=== PATIENT | female | born 1970 | race Caucasian/White ===

== ENCOUNTER 2020-09-13 01:42 | Inpatient (IN) | payer SELFPAY ==
[2020-09-13] VITALS (19 sets, daily range): BP systolic 75–144; BP diastolic 54–86; PULSE 54–81; RESP 12–22; TEMP 35.9–36.9; O2SAT 93–100; BMI 26.0
--- NOTE | 2020-09-13 | SCC_ITS ---
1. Cystoscopy, right retrograde pyelogram (very small volume) 2. Right ureteral stent placement (7 Yi by 24 cm double-pigtail 19.9 seconds of fluoroscopic guidance, for a cumulative dose of 1.88 mGy, was provided to Dr. Linda by the radiology department. C-arm images of the abdomen were saved for the patient's permanent record. [facility]
--- NOTE | 2020-09-13 02:29 | PM.HP ---
Providers/Chief Complaint Admitting Physician: iA Jackson MD Chief Complaint: direct admit History of Present Illness Alejandra Shahid is a 49 year old female with history of hypertension asthma arthritis presented today with chief complaint of right flank pain. Patient stating that her pain started on Monday, initially she attributed her symptoms to her chronic back pain but her pain was getting worse, she saw PCP yesterday who started her on ciprofloxacin. Her symptoms got worse which she describing as worsening of fatigue, lethargy, subjective fevers and an episode of vomiting at home. She is denying dysuria. Her flank pain is radiating towards right groin as well. She was seen in the ER at [facility] where diagnostics revealed leukocytosis white count 17,000, she was afebrile, he was given 2 L of normal saline along ceftriaxone for pyelonephritis which was evident on CT abdomen pelvis. SHERICE with creatinine 1.5. Urinalysis remarkable for pyuria with positive leukocyte esterase. Chest x-ray unremarkable. She has been tested negative for COVID-19 twice in last 1 week. Status post 1/2 COVID-19 vaccine At the time my evaluation normal vitals afebrile complaining of right flank pain. Dr. Linda accepted the patient and requested hospitalist service to admit. Review of Systems Const: Reports: fever(s), chills, body aches and fatigue Eyes: Denies: change in vision ENMT: Denies: throat pain Card: Denies: chest pain Resp: Denies: dyspnea GI: Reports: abdominal pain, nausea and vomiting : Reports: flank pain Musc: Denies: neck pain Skin/Breast: Denies: rash Neuro: Denies: headache(s) Psych: Denies: anxiety Endo: Denies: polyuria Jet/Lymph: Denies: easy bruising All/Imm: Denies: urticaria Medications/Allergies Allergies Allergy/AdvReac Type Severity Reaction Status Date / Time meperidine [From Demerol] Allergy ALGY-Hives Verified 09/13/20 01:58 morphine Allergy ALGY-Hives Verified 09/13/20 01:58 prednisone Allergy ALGY-Swell Verified 09/13/20 01:58 Lip/Tongue/Throat PFSH Acute PFSH: Medical History (Updated 09/13/20 @ 02:51 by Ai Jackson MD) Arthritis Asthma Bronchitis HTN (hypertension) Nicotine dependence Surgical History (Updated 09/13/20 @ 02:51 by Ai Jackson MD) H/O hemorrhoidectomy History of cholecystectomy History of tonsillectomy Previous back surgery S/P skin biopsy Family History (Updated 09/13/20 @ 02:51 by Ai Jackson MD) Other No pertinent family history Social History (Updated 09/13/20 @ 02:52 by Ai Jackson MD) Smoking and tobacco status: current every day smoker cigarettes [ Other cigarette details: 1.5pack ] Alcohol intake: never Substance/Drug Use: never Household members: none Housing: House Vitals/I&O/Wt Last Vital Signs Temp 98.2 F 09/13/20 01:53 Pulse 81 09/13/20 01:53 Resp 16 09/13/20 01:53 BP 111/75 09/13/20 01:53 Pulse Ox 97 09/13/20 01:53 Weight last 48 hrs Weight 66.678 kg Physical Exam Narrative: EXAM NARRATIVE: Middle-age female In distress with right flank pain, appears stated age S1, S2 sinus rhythm Bilateral breath sounds without adventitious rhonchi or crackles EOMI, PERRLA GCS 15 Awake alert oriented times GCS 15 Abdomen soft no signs of peritonitis Does not look fluid overloaded or dehydrated No joint swelling No sinus cellulitis Left nasolabial fold rash with healing/granulation tissue A&P Assessment and plan (1) Nephrolithiasis: Status: Acute (2) Pyelonephritis: Status: Acute (3) SHERICE (acute kidney injury): Status: Acute (4) Hydronephrosis: Status: Acute Additional A&P Information Nephrolithiasis/hydronephrosis 4 x 3 mm renal pelvis stone with mild hydronephrosis, UA showing pyuria, pyelonephritis Start ceftriaxone, she received 2 L at the outside facility and a gram of ceftriaxone will give her next dose in the morning Dilaudid for analgesia with bowel regimen We will keep her n.p.o. for urological intervention in the morning Hold lisinopril N.p.o. We will keep her on maintenance fluid overnight, currently pressure 111/[address] Linda consulted, patient has been tested negative twice for Covid 19 antigen SHERICE secondary to obstructive uropathy anticipating provement after intervention currently on ceftriaxone and maintenance fluid, no active signs of sepsis Check inflammatory markers in the morning N.p.o. DVT prophylaxis SCDs Full code Attestations Medical Necessity Statement*: Anticipating stay in the hospital cross more than 2 midnights for management of obstructive uropathy/pyelonephritis Time Spent in Patient Care: 30mins Coding Level of Care Code Acute Branch Sales And Service Representative for g Fwd Diagnoses Nephrolithiasis N20.0 Pyelonephritis N12 SHERICE (acute kidney injury) N17.9 Hydronephrosis N13.30
[2020-09-13] MEDS: dextrose 5%-sod chloride 0.45% 1,000 ML 75 ML IV ×2 (03:00→11:00)
--- NOTE | 2020-09-13 03:10 | W.ED.GENADLT ---
HPI - General Adult General: Chief complaint: General Medical Stated complaint: direct admit Time Seen by Provider: 09/13/20 02:00 History of Present Illness: HPI narrative: 49-year-old female presents as a direct admit from an outside hospital for hydronephrosis with pyelonephritis. She presents to the ER for medical clearance for going to the floor. She has no Covid symptoms including no cough, no congestion, no fever. She tested negative for Covid at her doctor's office yesterday. PFSH ED PFSH: Medical History (Updated 09/13/20 @ 03:12 by Duc Phelan DO) Arthritis Asthma Bronchitis HTN (hypertension) Nicotine dependence Surgical History (Updated 09/13/20 @ 02:51 by Ai Jackson MD) H/O hemorrhoidectomy History of cholecystectomy History of tonsillectomy Previous back surgery S/P skin biopsy Family History (Updated 09/13/20 @ 02:51 by Ai Jackson MD) Other No pertinent family history Social History (Updated 09/13/20 @ 02:52 by Ai Jackson MD) Smoking and tobacco status: current every day smoker cigarettes [ Other cigarette details: 1.5pack ] Alcohol intake: never Substance/Drug Use: never Household members: none Housing: House Physical Exam Const: COMMON NORMALS: patient oriented x3 and alert Chest: COMMONS NORMALS: normal inspection of the chest Resp: COMMON NORMALS: normal respiratory effort, No use of accessory muscles and clear to auscultation bilaterally AUSCULTATION: clear to auscultation bilaterally Cardio: COMMON NORMALS: regular rate and regular rhythm RATE: regular rate RHYTHM: regular rhythm Neuro: COMMON NORMALS: patient oriented x3 SENSORIUM/ORIENTATION: Yes alert Course Vital Signs: Vital signs: Vital Signs Temperature 98.2 F 09/13/20 01:53 Pulse Rate 81 09/13/20 01:53 Respiratory Rate 16 09/13/20 01:53 Blood Pressure 111/75 09/13/20 01:53 Pulse Oximetry 97 09/13/20 01:53 Discharge Plan Discharge Patient Disposition: Admitted As Inpatient Admit Provider: Ai Jackson Clinical Impression: Pyelonephritis Hydronephrosis Qualifiers: Hydronephrosis type: with renal calculous obstruction Qualified Code(s): N13.2 - Hydronephrosis with renal and ureteral calculous obstruction Condition: Stable Coding Level of Care Code ED Athletic Coordinator for Chg Fwd Exam Expanded Problem Focused
[2020-09-13] MEDS: HYDROmorphone 1 mg/mL INJ 1 mL 0.5 MG IVP ×2 (03:19→08:29)
--- NOTE | 2020-09-13 05:14 | P.CONIM_ITS ---
Providers/Reason For Consult Consulting Physician/Specialty*: Urology/Linda Reason for Consult*: Right Obstructive Pyelonephritis Attending Physician: Ai Jackson MD History of Present Illness History of Present Illness Alejandra Shahid is a 49 year old female direct admitted from [facility] after evaluation for fever, lethargy, emesis, and RIGHT renal colicky pain revealed OBSTRUCTIVE PYELONEPHRITIS. She had been on outpatient oral Cipro and was worsening. CT Scan showed a 4mm RIGHT UPJ stone with hydro WBC was about 18k. Urine showed pyuria. Creatinine mildly elevated at 1.5. Normal liver functions. Started on ROCEPHIN and transferred to [facility] for further eval and treatment. No indications of Covid infection on preadmit screeing. Additional history: Prior urological concerns: Is not a frequent UTI patient. Her current symptoms began about 3 weeks ago with increasing urgency frequency and had significant progression of that over the last week. About the same time she developed increasing right flank pain and right upper quadrant pain. She was experiencing chills and subjective fever but did not take her temperature. She did not seek care until 2 days ago at which time she was placed on I believe ciprofloxacin. She does not report a history of chronic UTI symptoms but does vaguely talk about some lower abdominal discomfort for longer than the above timeframe mentioned. Additional medical concerns: HTN, Asthma and arthritis. Updated/current data: I personally reviewed the CT scan after importing from [facility]. The stone is actually in the right proximal ureter out of the kidney proper. I agree there is hydronephrosis. There is some mild increase in perirenal stranding. There is also at least one other stone in the left kidney which is nonobstructing. No other gross pathology identified. There is no formal report yet from [facility]. KUB this morning: The left renal stone is readily identifiable. There is a faint hint on one of the images of a calcification likely consistent with the stone seen on CT scan in the right proximal ureter. Morning lab: Creatinine has slightly increased to 1.6. White count has improved to 10.7. I have explained the above in great detail to the patient. Reviewed with her the findings of her labs as well as her radiology tests. I have recommended emergency stent placement, completion of antibiotic therapy for UTI, and dealing with the stone after resolution of UTI. Benefits risk potential complications alternatives reviewed in detail. Discussed the remote chance of antegrade access requirement (percutaneous nephrostomy) if access in a retrograde fashion is unobtainable. She is a heavy smoker and has been so for 42 years. Reviewed in detail with her the importance of smoking cessation. Reviewed mu ltiple avenues of treatment, lines of thinking, benefits, and long-term expectations for quitting versus continuing. She seems motivated but has not pulled the trigger in the past on being diligent about trying to quit. Plans: 1. To the operating room emergently for cystoscopy right ureteral stent placement 2. Continue IV antibiotics 3. Deal with the stone more definitively once her infection has cleared. Review of Systems Const: Reports: fever(s), chills, body aches and malaise Eyes: Denies: change in vision or blurry vision ENMT: Denies: throat pain or odynophagia Card: Denies: chest pain or palpitations Resp: Denies: dyspnea or wheezing GI: Reports: abdominal pain (Right flank, right upper and lower quadrants), nausea and vomiting; Denies: diarrhea : Reports: flank pain; Denies: hematuria Musc: Reports: back pain; Denies: joint redness or joint warmth Skin/Breast: Denies: rash or non-healing lesions Neuro: Denies: headache(s), confusion, behavioral changes or seizure-like activity Psych: Denies: anxiety or depression Endo: Denies: flushing Jet/Lymph: Denies: easy bruising or easy bleeding All/Imm: Denies: urticaria or acute wheezing Meds/Allergies Home Medications and Allergies Allergies Allergy/AdvReac Type Severity Reaction Status Date / Time meperidine [From Demerol] Allergy ALGY-Hives Verified 09/13/20 01:58 morphine Allergy ALGY-Hives Verified 09/13/20 01:58 prednisone Allergy ALGY-Swell Verified 09/13/20 01:58 Lip/Tongue/Throat Current Medications Current Medications Generic Name Dose Route Start Last Admin Trade Name Freq PRN Reason Stop Dose Admin Hydromorphone HCl 0.5 mg 09/13/20 02:56 09/13/20 03:19 Hydromorphone 1 Mg/Ml Inj 1 Ml IVP 0.5 mg Q4H PRN Administration pain Dextrose/Sodium Chloride 1,000 mls @ 75 mls/hr 09/13/20 02:56 09/13/20 03:00 Dextrose 5%-Sod Chloride 0.45% IV 75 mls/hr .[id number] FLASH Administration PFSH Acute PFSH: Medical History Arthritis Asthma Bronchitis HTN (hypertension) Nicotine dependence Obstructive pyelonephritis Surgical History H/O hemorrhoidectomy History of cholecystectomy History of tonsillectomy Previous back surgery S/P skin biopsy Family History Other No pertinent family history Social History Smoking and tobacco status: current every day smoker cigarettes [ Other cigarette details: 1.5pack ] Alcohol intake: never Substance/Drug Use: never Household members: none Housing: House Vitals/I&O/Wt Last Vital Signs Temp 97.8 F 09/13/20 03:31 Pulse 71 09/13/20 03:31 Resp 19 H 09/13/20 03:31 BP 117/82 09/13/20 03:31 Pulse Ox 98 09/13/20 03:31 Weight last 48 hrs Weight 147 lb Physical Exam Const: COMMON NORMALS: no acute distress, alert and well nourished GENERAL APPEARANCE: well kempt and well developed ORIENTATION/CONSCIOUSNESS: not confused HENMT: COMMON NORMALS: normocephalic and atraumatic HEAD & SCALP: normocephalic and atraumatic Eye: COMMON NORMALS: conjunctivae normal and no scleral icterus CONJUNCTIVA: Yes conjunctivae normal Neck/C-Spine: COMMON NORMALS: full ROM GENERAL: Yes normal visual inspection Lymph: LYMPHATIC: no lymphadenopathy noted and no lymphedema noted Resp: COMMON NORMALS: normal respiratory effort and clear to auscultation bilaterally EFFORT & INSPECTION: No labored and No Actively coughing AUSCULTATION: clear to auscultation bilaterally Cardio: COMMON NORMALS: regular rate and regular rhythm RATE: regular rate RHYTHM: regular rhythm BRUITS: no carotid bruits GI: COMMON NORMALS: Soft to palpation PALPATION: Yes Soft to palpation, Yes Tenderness to palpation present (GI) Details: RLQ and RUQ and Yes Guarding due to palpation present (GI) : COMMON NORMALS: Yes normal external appearance and Yes normal appearance of the vagina BLADDER/KIDNEY EXAM: Yes bladder normal to palpation and Yes CVA tenderness BIMANUAL EXAM - VAGINA & UTERUS: Yes bladder normal to palpation Back/Pelvis: GENERAL BACK: Yes CVA tenderness CVA tenderness: right Extremity: COMMON NORMALS: no clubbing, cyanosis or edema Neuro: COMMON NORMALS: no focal motor deficits SENSORIUM/ORIENTATION: Yes alert Psych: COMMON NORMALS: mental status grossly normal APPEARANCE: Yes grossly normal and Yes well kempt ATTITUDE: Yes calm and Yes engaged Skin: COMMON NORMALS: no rashes or lesions noted GENERAL SKIN EXAM: no rashes or lesions noted Data Other Data: Attestation for Other Data: I personally reviewed and interpreted the following: (CT scan, KUB. See interpretation above.) A&P Assessment and plan (1) Obstructive pyelonephritis: Emergent right ureteral stent placement. Status: Acute (2) Nephrolithiasis: Additional nonobstructing LEFT renal calculus Status: Acute (3) SHERICE (acute kidney injury): Creatinine this morning of 1.6 Status: Acute Consult Attestations Medical Necessity Statement: Obstructive pyelonephritis worsening on antibiotics as outpatient Requiring surgical intervention with a right ureteral stent. Coding Level of Care Code Acute Banner Painter for [facility] Diagnoses Obstructive pyelonephritis N11.1 Nephrolithiasis N20.0 SHERICE (acute kidney injury) N17.9
--- NOTE | 2020-09-13 05:15 | XRR_ITS ---
PROCEDURE INFORMATION: Exam: XR Abdomen Exam date and time: 09/13/2020 5:15 AM Age: 49 years old Clinical indication: Abdominal pain; Flank; Right; Additional info: Right upj stone with UTI TECHNIQUE: Imaging protocol: XR of the abdomen. Views: Frontal supine view of the abdomen. 1 View. COMPARISON: CR Chest 2 views* [id number] 03/04/2017 10:02 PM FINDINGS: Gastrointestinal tract: Normal. No bowel dilation. Organs: Clips are present from cholecystectomy. A 4 mm calcification projects on the left kidney. No ureteral stones are seen. Bones/joints: Patient has undergone lumbar surgical fusion at L4-L5. XR/XR KUB [id number] IMPRESSION: 1. 4 mm calcification projects on the left kidney. 2. No acute abnormalities are seen.
[2020-09-13 05:26] LABS: Basophils # 0.1 10^3/uL (0.0-0.1); Basophils % 0.5 %; Eosinophils # 0.2 10^3/uL (0.0-0.8); Eosinophils % 1.6 %; Hematocrit 40.2 % (37.0-47.0); Hemoglobin 12.7 g/dL (11.5-15.3); Lymphocytes # 2.9 10^3/uL (0.8-4.8); Lymphocytes % 27.6 %; Mean Corpuscular HGB Conc 31.6 g/dL (30.0-36.0); Mean Corpuscular Hemoglobin 29.9 pg (28.0-34.0); Mean Corpuscular Volume 94.6 fL (81-99); Mean Platelet Volume 9.8 fL (7.4-10.4); Monocytes % 9.4 %; Neutrophils # 6.46 10^3/uL (1.8-7.7); Neutrophils % 60.5 %; Nucleated Red Blood Cells % 0 %; Platelet Count 325 10^3/cmm (130-400); Red Blood Count 4.25 10^6/uL (4.1-5.3); Red Cell Distribution Width 13.2 % (12.1-15.1); White Blood Count 10.7 10^3/uL (4.0-10.0)
[2020-09-13] MEDS: acetaminophen 500 mg Tablet PO ×2 (05:29→22:45)
[2020-09-13 05:53] LABS: Anion Gap 10.5 (5-19); Blood Urea Nitrogen 18 mg/dL (6-20); Calcium 9.3 mg/dL (8.5-10.5); Carbon Dioxide 23 mmol/L (22-29); Chloride 110 mmol/L (98-107); Glucose 90 mg/dL (65-115); Osmolality Calculated 291 mOsm/kg (285-295); Potassium 3.5 mmol/L (3.5-5.1); Sodium 140 mmol/L (136-145)
--- NOTE | 2020-09-13 08:19 | P.ANESASSM_ITS ---
Pre-Anesthetic Assessment Pre-Anesthetic Assessment: Height/Weight: Height 1.6 m Weight 66.678 kg Temp Pulse Resp BP Pulse Ox 98.0 F 68 17 116/78 97 09/13/20 07:52 09/13/20 07:52 09/13/20 07:52 09/13/20 07:52 09/13/20 07:52 Was Beta Jagdeep taken within 24 hours: N/A Was Clonidine taken within 24 hours: N/A Social: Social History: Tobacco and No alcohol Exam: Pre-Anes Outpt Exam: alert, oriented x 3, clear to auscultation bilaterally and regular rate & rhythm Airway: Submandibular: WNL Cervical ROM: WNL MP: 2 Pulmonary: Pulmonary: COPD CV/HEM: CV/HEM: HTN : Comments: History of renal calculi with ureteral obstruction/hydronephrosis Hepatic: Hepatic: None reported GI: GI: None reported Metabolic: Metabolic: None reported Musc/skel: Musc/skel: None reported Neuropsych: Neuropsych: None reported Anesthetic Plan: ASA status: 3E Anesthesia: General Meds/Allergies Current Medications: Current Medications Generic Name Dose Route Start Last Admin Trade Name Freq PRN Reason Stop Dose Admin Acetaminophen 500 mg 09/13/20 02:56 09/13/20 05:29 Acetaminophen 50 0 Mg Tablet PO 500 mg Q4H PRN Administration fever Hydromorphone HCl 0.5 mg 09/13/20 02:56 09/13/20 03:19 Hydromorphone 1 Mg/Ml Inj 1 Ml IVP 0.5 mg Q4H PRN Administration pain Dextrose/Sodium Ch loride 1,000 mls @ 75 ml s/hr 09/13/20 02:56 09/13/20 03:00 Dextrose 5%-Sod Chloride 0.45% IV 75 mls/hr .[id number] FLASH Administration PFSH Anesthesia PFSH: Medical History Arthritis Asthma Bronchitis HTN (hypertension) Nicotine dependence Obstructive pyelonephritis Surgical History H/O hemorrhoidectomy History of cholecystectomy History of tonsillectomy Previous back surgery S/P skin biopsy Family History Other No pertinent family history Social History Smoking and tobacco status: current every day smoker cigarettes [ Other cigarette details: 1.5pack ] Alcohol intake: never Substance/Drug Use: never Household members: none Housing: House Data Anesthesia CBC & Chem 7: 09/13/20 04:50 09/13/20 04:50 Other Labs: Laboratory Results - last 48 hr 09/13/20 09/13/20 04:50 04:50 WBC 10.7 H RBC 4.25 Hgb 12.7 Hct 40.2 MCV 94.6 MCH 29.9 MCHC 31.6 RDW 13.2 Plt Count 325 MPV 9.8 Neut % (Auto) 60.5 Lymph % (Auto) 27.6 [place] % (Auto) 9.4 Eos % (Auto) 1.6 Baso % (Auto) 0.5 Neut # (Auto) 6.46 Lymph # (Auto) 2.9 [place] # (Auto) 1.0 H Eos # (Auto) 0.2 Baso # (Auto) 0.1 Nucleated RBC % (auto) 0 Nucleated RBCs # 0.0 Sodium 140 Potassium 3.5 Chloride 110 H Carbon Dioxide 23 Anion Gap 10.5 BUN 18 Creatinine 1.6 H GFR Calculation 34.0 L Glucose 90 Calculated Osmolality 291 Calcium 9.3 Cardiac Studies: No Data to Display
[2020-09-13] MEDS: cefTRIAXone 1,000 MG in sodium chloride 0.9% (plus) 50 ML 100 MG IV (08:32)
--- NOTE | 2020-09-13 08:58 | SC_ITS ---
WS: [id number] C-ARM RADIOGRAPHS ABDOMEN; 2 IMAGES HISTORY: intra-op COMPARISON: 09/12/2020 Intraoperative imaging during RIGHT retrograde examination. There is contrast filling the RIGHT renal pelvis. Possible filling defect in the calyx of the upper pole RIGHT kidney. SC/C-arm FL for Urology IMPRESSION: Intraoperative imaging during retrograde evaluation of the RIGHT ureter and kid stoney.
[2020-09-13] MEDS: iohexol 300 mg/mL 50 mL Btl (OR ONLY) XX (09:22)
--- NOTE | 2020-09-13 09:23 | PM.OP ---
Operative Report Date of procedure: September 13, 2020 Pre-op Diagnosis: Right obstructive pyelonephritis Post-op diagnosis: same Post-op Diagnosis: Right obstructive pyelonephritis CHRONIC CYSTITIS CYSTICA Procedure Done: 1. Cystoscopy, right retrograde pyelogram (very small volume) 2. Right ureteral stent placement (7 [place] by 24 cm double-pigtail Pathology: none sent Surgeon: Maddi Anesthesia: General Estimated blood loss: Minimal Urine output: Not measured Complications: None. Hemodynamically stable throughout the case Findings: 7 [place] African by 24 cm stent placed without difficulty. Small amount of contrast was injected into the collecting system via an open-ended ureteral catheter to confirm appropriate position. Condition: stable Disposition: PACU Brief History: Alejandra is a very pleasant 49-year-old white female who I evaluated for the first time today at the request of the [place] emergency for direct admission related to infection and a right proximal ureteral stone with obstruction. White count was elevated. She had had about a week long history of increasing flank pain and subjective fever and chills. Urinalysis still showed pyuria after initiation of antibiotics and her symptoms had not improved. KUB confirmed the stone in roughly the same position without significant progression. She was recommended to go to the operating room emergently for right ureteral stent placement. Procedure: After emergent preoperative evaluation examination and obtaining of informed consent she was taken to the operative suite on 09/13/2020 where general anesthesia was administered without difficulty after appropriate timeout was performed, SCDs confirmed to be functioning, preoperative antibiotics administered, beta-ruth ann protocol confirmed. Prepped and draped in usual sterile fashion in dorsolithotomy position paying careful attention to avoiding pressure points. 21 [place] African cystoscope with 30 degree lens was introduced into the urethral meatus and advanced into the bladder under videoscopy. The bladder was systematically examined and showed evidence of chronic cystitis cystica. A flexible tip guidewire was then advanced at the right ureter curling in the area of the the kidney presumably. An open-ended ureteral catheter was then passed over the guidewire into this area and the wire removed in about 1 cc of contrast was instilled after draining off some urine. This allowed obvious visualization of the collecting system. The guidewire was then repassed back up and the catheter was removed. A 7 [place] African by 24 cm double-pigtail stent was advanced over the guidewire through the cystoscope into appropriate position as confirmed via fluoroscopy and cystoscopy. The stent was visualized to be draining. The bladder was drained and the procedure completed. Tolerated procedure well without complications and was awakened in the operating room and returned to the recovery room in stable condition. Intraoperatively her blood pressure was normal. PLANS: 1. Keep on inpatient status with IV antibiotics. Supportive care as needed. 2. After complete course of acute antibiotics for obstructive pyelonephritis we will treat the stone definitively. 3. Based on the findings of CHRONIC CYSTITIS CYSTICA she will require prolonged course of antibiotics for clearance.
--- NOTE | 2020-09-13 09:38 | SUR.PHASEI ---
pt awake alert takataive, BP lower see anesth med given on admit to pacu IV W/O rate, pt requests her mask be placed , pt denies pain and nauseas, bp better, vss monitor SR.
--- NOTE | 2020-09-13 09:47 | ANE.PACU2 ---
Inpatient post-anesthesia follow up: Airway intact: Yes Vital signs: Temperature 98.4 F Pulse Rate [Monito r] 81 Pulse Rate 59 Respiratory Rate 18 Blood Pressure [Le ft Arm] 111/75 Blood Pressure 116/72 Pulse Oximetry 98 Oxygen Delivery Me thod Room Air Oxygen Flow Rate 8 Fraction of Inspir ed Oxygen Hydration adequate: Yes Nausea and vomiting: No Pain level: 3 Mental status: Baseline
[2020-09-13] MEDS: phenazopyridine 100 mg Tablet 200 MG PO (10:56)
[2020-09-13] MEDS: sennosides-docusate Tablet 1 TAB PO (10:58)
--- NOTE | 2020-09-13 12:03 | P.PN_ITS ---
Subjective Subjective: Interval history: Admitted last night. Post right ureteral stenting, cystoscopy and right retrograde pyelogram. Complaining of pain in the flank and urinary urgency today. Denies any nausea, vomiting, headache, dizziness. Has remained afebrile hemodynamically stable. Medications: Reviewed: Yes Vitals/I&O/Wt Last Vital Signs Temp 97.9 F 09/13/20 11:00 Pulse 65 09/13/20 11:00 Resp 17 09/13/20 11:00 BP 120/84 09/13/20 11:00 Pulse Ox 96 09/13/20 11:00 09/12/20 09/13/20 09/13/20 22:59 06:59 14:59 Intake Total 650 / 650 Output Total 300 / 300 0 / 0 Balance -300 / -300 650 / 650 Weight last 48 hrs Weight 66.678 kg Physical Exam Narrative: EXAM NARRATIVE: Middle-age female In distress with right flank pain, appears stated age S1, S2 sinus rhythm Bilateral breath sounds without adventitious rhonchi or crackles EOMI, PERRLA GCS 15 Awake alert oriented times GCS 15 Abdomen soft no signs of peritonitis Does not look fluid overloaded or dehydrated No joint swelling No sinus cellulitis Left nasolabial fold rash with healing/granulation tissue Data : 09/13/20 04:50 09/13/20 04:50 A&P Assessment and plan (1) Nephrolithiasis: Status: Acute (2) Pyelonephritis: Status: Acute (3) SHERICE (acute kidney injury): Status: Acute (4) Hydronephrosis: Status: Acute Qualifiers: Hydronephrosis type: with renal calculous obstruction Qualified Code(s): N13.2 - Hydronephrosis with renal and ureteral calculous obstruction Additional A&P Information Sepsis secondary to pyelonephritis: Nephrolithiasis/hydronephrosis: Post right ureteral stent stenting: Postoperative day 1. Continue with ceftriaxone. Check urinalysis, urine culture, blood culture. Patient found to have chronic cystitis cystica during the procedure so would need prolonged antibiotic course for clearance. Start patient on Axtell 5 every 6 hour, tramadol 50 every 6 hours for pain management. Normal saline at 75 cc/h. Acute kidney injury: Most likely secondary to sepsis. Continue with IV fluids as above. Medical reconstruction done for nephrotoxic drugs. Hypertension: Goal blood pressure less than 140/90 mmHg. Continue with amlodipine. For now hold off on lisinopril. Cardiac diet DVT prophylaxis SCDs Full code Attestations Medical Necessity Statement*: Requires further hospitalization for management of sepsis secondary pyonephritis, acute kidney injury Time Spent in Patient Care: Greater than 35 minutes (>than 50% of time spent in counselling and/or direct pt care on unit) . 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
[2020-09-13 12:38] LABS: Procalcitonin 0.13 ng/mL (0-0.5); Thyroid Stimulating Hormone 3.01 uIU/mL (0.27-4.20)
[2020-09-13] MEDS: HYDROcodone-acetaminophen 5-325 mg Tablet 1 TAB PO ×2 (12:41→19:50)
[2020-09-13 12:49] LABS: Iron 22 ug/dL (37-145); Percent Saturation 14.9 % (20-50); Total Iron Binding Capacity 147 mcg/dl; Unsaturated Iron Binding 125 ug/dL (112-347)
[2020-09-13 15:49] LABS: Bilirubin Urine Neg (Negative); Blood Urine 2+ (Negative); Glucose Urine UA Norm (Normal); Ketones Urine Negative (Negative); Nitrate Urine Negative (Negative); Protein Urine Neg (Negative); Specific Gravity, Urine 1.005 (1.005-1.030); Urine Appearance Clear (CLEAR); Urine Color Yellow (Yellow); Urobilinogen Urine Norm (Negative); pH Urine 6.5 (5-7)
[2020-09-13 15:50] LABS: Add Urine Microscopic? YES; Leukocyte Esterase Urine Trace (Negative); RBC Urine 0-4 /hpf (0-2); WBC Urine 0-4 /hpf (0-5)
[2020-09-13 15:51] LABS: Add Urine Culture? No; Bacteria Urine TRACE /hpf
[2020-09-13] MEDS: TRAMadol 50 mg Tablet PO (16:44)
[2020-09-14] VITALS: BP 107/72; PULSE 68; RESP 16; TEMP 36.7; O2SAT 95
[2020-09-14] MEDS: dextrose 5%-sod chloride 0.45% 1,000 ML 75 ML IV (01:35)
[2020-09-14] MEDS: ondansetron 2 mg/ML SDV 2 mL 4 MG IVP (01:36)
[2020-09-14 04:00] VITALS: BP 136/77; PULSE 65; RESP 18; TEMP 36.7; O2SAT 96
[2020-09-14] MEDS: HYDROcodone-acetaminophen 5-325 mg Tablet 1 TAB PO ×2 (04:00→10:19)
[2020-09-14 07:01] LABS: Basophils % 0.3 %; Eosinophils # 0.1 10^3/uL (0.0-0.8); Eosinophils % 0.6 %; Hematocrit 37.9 % (37.0-47.0); Hemoglobin 11.8 g/dL (11.5-15.3); Lymphocytes # 3.2 10^3/uL (0.8-4.8); Lymphocytes % 27.4 %; Mean Corpuscular HGB Conc 31.1 g/dL (30.0-36.0); Mean Corpuscular Hemoglobin 29.4 pg (28.0-34.0); Mean Corpuscular Volume 94.5 fL (81-99); Mean Platelet Volume 10.3 fL (7.4-10.4); Monocytes # 0.9 10^3/uL (0.2-0.9); Monocytes % 7.4 %; Neutrophils # 7.38 10^3/uL (1.8-7.7); Neutrophils % 63.9 %; Nucleated Red Blood Cells % 0 %; Platelet Count 331 10^3/cmm (130-400); Red Blood Count 4.01 10^6/uL (4.1-5.3); Red Cell Distribution Width 13.2 % (12.1-15.1); White Blood Count 11.6 10^3/uL (4.0-10.0)
[2020-09-14 07:21] LABS: Alanine Aminotransferase 14 U/L (0-33); Alkaline Phosphatase 104 IU/L (35-105); Anion Gap 13.8 (5-19); Aspartate Amino Transferase 17 U/L (0-32); Blood Urea Nitrogen 14 mg/dL (6-20); Calcium 9.2 mg/dL (8.5-10.5); Carbon Dioxide 22 mmol/L (22-29); Chloride 111 mmol/L (98-107); Chol HDL Ratio 4.93 mg/dL (0.0-4.40); Cholesterol 143 mg/dL (0-200); Globulin 2.7 g/dL (1.3-4.6); Glomerular Filtration Rate 52.4 mL/min (90-130); Glucose 97 mg/dL (65-115); HDL Cholesterol 29 mg/dL (60-100); LDL Cholesterol Calculated 93 mg/dL (50-129); Osmolality Calculated 296 mOsm/kg (285-295); Potassium 3.8 mmol/L (3.5-5.1); Sodium 143 mmol/L (136-145); Total Bilirubin 0.2 mg/dL (0.15-1.2); Total Protein 5.7 g/dL (6.6-8.7); Triglycerides 104 mg/dL (0-150); VLDL Cholestrol Calculation 21 mg/dL (0-30)
[2020-09-14 07:36] LABS: Estmated Average Glucose 91; Hemoglobin A1C 4.8 % (4.0-6.0)
[2020-09-14 08:00] VITALS: BP 132/77; PULSE 66; RESP 18; TEMP 36.4; O2SAT 98
[2020-09-14] MEDS: cefTRIAXone 1,000 MG in sodium chloride 0.9% (plus) 50 ML 100 MG IV (08:05)
[2020-09-14] MEDS: sennosides-docusate Tablet 1 TAB PO (08:06)
[2020-09-14] MEDS: acetaminophen 500 mg Tablet PO (08:16)
--- NOTE | 2020-09-14 09:24 | P.DS_ITS ---
Discharge Providers Date of Admission: 09/13/20 02:27 Date of Discharge: September 14, 2020 Attending Provider at Admission: Ai Jackson MD Attending Provider at Discharge: Lele Chaudhary MD Diagnoses at Discharge Discharge Diagnosis (1) Pyelonephritis: Status: Acute Permanent problem details: Obstructive pyelonephritis with excellent response to the stent drainage and antibiotic therapy. Final cultures are pending but preliminary shows no growth. She was on ciprofloxacin at time of presentation (2) Nephrolithiasis: Status: Acute Permanent problem details: Right proximal ureteral stone treated with stent, untreated LEFT renal calculi (3) SHERICE (acute kidney injury): Status: Acute Permanent problem details: Improved after stent placement Hospital Course Hospital Course She was admitted and taken to the operating room urgently for a right ureteral stent placement for obstructive pyelonephritis secondary to 4 mm right proximal ureteral stone. Her white count decreased appropriately. She had no fever spikes. Her vital signs remained stable without any evidence of progression to sepsis. Symptoms dramatically improved. She was having typical stent symptoms of discharge on postoperative day #1 but overall clinically looks much better. She was also noted to have CHRONIC CYSTITIS at time of cystoscopy including cystitis cystica. For that reason she will need to be on antibiotics longer. A follow-up was scheduled on 09/18/2020. She will be discharged on CEFUROXIME 500 mg twice a day. She has been instructed to call if she has progressive symptoms after discharge. Physical Exam Const: COMMON NORMALS: no acute distress, alert and well nourished GENERAL APPEARANCE: well kempt and well developed ORIENTATION/CONSCIOUSNESS: not confused HENMT: COMMON NORMALS: normocephalic and atraumatic HEAD & SCALP: normocephalic and atraumatic Eye: COMMON NORMALS: conjunctivae normal and no scleral icterus CONJUNCTIVA: Yes conjunctivae normal Neck/C-Spine: COMMON NORMALS: full ROM GENERAL: Yes normal visual inspection Resp: EFFORT & INSPECTION: No labored and No Actively coughing Extremity: COMMON NORMALS: no clubbing, cyanosis or edema Neuro: SENSORIUM/ORIENTATION: Yes alert Psych: COMMON NORMALS: mental status grossly normal APPEARANCE: Yes grossly normal and Yes well kempt ATTITUDE: Yes calm and Yes engaged Skin: COMMON NORMALS: no rashes or lesions noted and no jaundice GENERAL SKIN EXAM: no rashes or lesions noted Discharge Data Data Completed and Pending: Completed Studies During Hospitalization Category Date Time Status XR KUB [id number] Rout ine Exams 09/13/20 05:15 Completed Pending at discharge Category Date Time Status C-arm FL for Urol ogy Routine Exams 09/13/20 08:58 Taken Blood Culture Sta t Lab 09/13/20 14:45 Results MRSA by PCR Routi ne Lab 09/13/20 17:53 Received Urine Culture Sta t Lab 09/13/20 11:55 Results Labs from last 24 hours 09/14/20 09/14/20 09/14/20 05:50 05:50 05:50 WBC 11.6 H RBC 4.01 L Hgb 11.8 Hct 37.9 MCV 94.5 MCH 29.4 MCHC 31.1 RDW 13.2 Plt Count 331 MPV 10.3 Neut % (Auto) 63.9 Lymph % (Auto) 27.4 Gallia % (Auto) 7.4 Eos % (Auto) 0.6 Baso % (Auto) 0.3 Neut # (Auto) 7.38 Lymph # (Auto) 3.2 Gallia # (Auto) 0.9 Eos # (Auto) 0.1 Baso # (Auto) 0.0 Nucleated RBC % (a uto) 0 Nucleated RBCs # 0.0 Sodium 143 Potassium 3.8 Chloride 111 H Carbon Dioxide 22 Anion Gap 13.8 BUN 14 Creatinine 1.1 H GFR Calculation 52.4 L Glucose 97 Estimat Average Gl ucose 91 Hemoglobin A1c 4.8 Calculated Osmolal ity 296 H Calcium 9.2 Iron TIBC % Saturation Unsat Iron Binding Total Bilirubin 0.2 AST 17 ALT 14 Alkaline Phosphata se 104 Total Protein 5.7 L Albumin 3.0 L Globulin 2.7 Triglycerides 104 Cholesterol 143 LDL Cholesterol, C alc 93 Total VLDL Cholest nadira 21 HDL Cholesterol 29 L Cholesterol/HDL Ra austen 4.93 H Procalcitonin TSH Urine Color Urine Appearance Urine pH Ur Specific Gravit y Urine Protein Urine Glucose (UA) Urine Ketones Urine Blood Urine Nitrate Urine Bilirubin Urine Urobilinogen Ur Leukocyte Cecilia ase Urine RBC Urine WBC Ur Squamous Epith Cells Amorphous Sediment Urine Bacteria 09/13/20 09/13/20 11:55 04:00 WBC RBC Hgb Hct MCV MCH MCHC RDW Plt Count MPV Neut % (Auto) Lymph % (Auto) Gallia % (Auto) Eos % (Auto) Baso % (Auto) Neut # (Auto) Lymph # (Auto) Gallia # (Auto) Eos # (Auto) Baso # (Auto) Nucleated RBC % (a uto) Nucleated RBCs # Sodium Potassium Chloride Carbon Dioxide Anion Gap BUN Creatinine GFR Calculation Glucose Estimat Average Gl ucose Hemoglobin A1c Calculated Osmolal ity Calcium Iron 22 L TIBC 147 % Saturation 14.9 L Unsat Iron Binding 125 Total Bilirubin AST ALT Alkaline Phosphata se Total Protein Albumin Globulin Triglycerides Cholesterol LDL Cholesterol, C alc Total VLDL Cholest nadira HDL Cholesterol Cholesterol/HDL Ra austen Procalcitonin 0.13 TSH 3.01 Urine Color Yellow Urine Appearance Clear Urine pH 6.5 Ur Specific Gravit y 1.005 Urine Protein Neg Urine Glucose (UA) Norm Urine Ketones Negative Urine Blood 2+ H Urine Nitrate Negative Urine Bilirubin Neg Urine Urobilinogen Norm Ur Leukocyte Cecilia ase Trace H Urine RBC 0-4 H Urine WBC 0-4 H Ur Squamous Epith Cells 5-10 H Amorphous Sediment Not Reportable Urine Bacteria Trace Vitals: Last Vital Signs Temp 97.6 F 09/14/20 08:00 Pulse 66 09/14/20 08:00 Resp 18 09/14/20 08:00 BP 132/77 09/14/20 08:00 Pulse Ox 98 09/14/20 08:00 Discharge Plan Discharge Patient Disposition: Home Prescriptions: New cefuroxime axetil 500 mg tablet 500 mg PO BID 20 Days Qty: 40 RF: 0 hydrocodone-acetaminophen 5-325 mg tablet 1 tab PO Q8H PRN (Reason: pain) Qty: 12 RF: 0 Continued cyclobenzaprine 10 mg tablet 10 mg PO BEDTIME PRN (Reason: MUSCLE SPASMS) RF: 0 promethazine 12.5 mg tablet 12.5 mg PO Q6H PRN (Reason: NAUSEA/VOMITING) RF: 0 lisinopril 20 mg tablet 20 mg PO DAILY RF: 0 amlodipine 5 mg tablet 5 mg PO DAILY RF: 0 ciprofloxacin HCl 500 mg tablet 500 mg PO BID RF: 0 Held ibuprofen 800 mg tablet 800 mg PO Q8H PRN (Reason: Pain) RF: 0 Hold Instructions: Resume on 09/25/20. Hold after 09/16/2020 Discharge Orders: Discharge Order (Routine); Ordered 09/14/20 Ordered By: Yasmany Linda Other Ambulatory Orders: XR ARACELIB [id number] (Routine) Timeframe: 20200918 Facility: [facility] - Location: [address] Imaging Ordered By: Yasmany Linda Referrals: Yasmany Linda MD [Physician] - 09/18/20 (Please call [facility] on Monday to confirm your appointment on 09/18/20 for KUB first.) Discharge Diet: Usual diet Discharge Activity: Increase activity as tolerated Patient Instructions: Cefuroxime (By mouth), Acute Pyelonephritis (DC), Ureteral Stent Placement (DC), Opioid Safety Activity Restrictions/Additional Instructions: 1. You were treated at the hospital for obstructive pyelonephritis. This involved antibiotics as well as a right ureteral stent placement. The stone was not removed but rather bypassed with the stent in order to allow the antibiotics to work better. 2. The stent still needs to be removed as does the stone. 3. Your first follow-up visit in my office will be on Monday the . We will obtain a plain x-ray of your abdomen prior to that visit at [facility]. Please bring the x-ray with you to my office and we will review our next steps. 4. I will prescribe both pain medication as well as antibiotics. Use the pain medication frequently. Use the antibiotics religiously until they are completed. 5. Please call if you feel like your infection is getting worse. He can call my office during routine working hours at [phone] or the hospital burner operator can reach me after hours if necessary. 6. Please remember that the stent that is in place will create symptoms of urgency, frequency, flank pain with voiding at times. These are all normal. Your bladder symptoms may be worse than normal due to your CHRONIC CYSTITIS discovered intraoperatively. 7. Because of the chronic cystitis you will need to be on some antibiotics longer than usual for clearance. Discharge Attestations Time Spent in Discharge Care*: greater than 30 min Quality Metrics Clinical Quality Measures During this hospital stay, did patient experience: None Coding Level of Care Code Acute Chg FW DC note Exam Comprehensive Diagnoses Pyelonephritis N12 Nephrolithiasis N20.0 SHERICE (acute kidney injury) N17.9
[2020-09-14 11:23] VITALS: BP 165/97; PULSE 61; RESP 18; TEMP 36.6; O2SAT 97
[2020-09-14 11:38] VITALS: BP 165/97; PULSE 61; RESP 18; TEMP 36.6; O2SAT 97
--- NOTE | 2020-09-14 14:46 | PM.PN ---
Subjective Subjective: Interval history: No acute event overnight,patient has remained afebrile hemodynamically stable. Medications: Reviewed: Yes Vitals/I&O/Wt Last Vital Signs Temp 97.9 F 09/14/20 11:38 Pulse 61 09/14/20 11:38 Resp 18 09/14/20 11:38 BP 165/97 09/14/20 11:38 Pulse Ox 97 09/14/20 11:38 09/13/20 09/14/20 09/14/20 22:59 06:59 14:59 Intake Total 240 / 890 1000 / 1890 1147.5 / 1147.5 Output Total 200 / 500 Balance 240 / 590 800 / 1390 1147.5 / 1147.5 Weight last 48 hrs Weight 66.678 kg Physical Exam Const: COMMON NORMALS: patient oriented x3 HENMT: COMMON NORMALS: normocephalic and atraumatic HEAD & SCALP: normocephalic and atraumatic Chest: CHEST: Yes Symmetrical chest wall rise Resp: COMMON NORMALS: clear to auscultation bilaterally EFFORT & INSPECTION: Yes symmetric chest movement AUSCULTATION: clear to auscultation bilaterally Cardio: COMMON NORMALS: regular rate, regular rhythm, S1 normal heart sound present, S2 normal heart sound present, No gallops present (Cardio), No murmurs present (Cardio), No rub (Cardio) and Peripheral pulses 2+ throughout RATE: regular rate RHYTHM: regular rhythm HEART SOUNDS: S1 normal heart sound present and S2 normal heart sound present PERIPHERAL PULSES: Peripheral pulses 2+ throughout GI: COMMON NORMALS: Normal to inspection, nondistended, normoactive bowel sounds present, Soft to palpation, non-tender, No hepatosplenomegaly present and no masses AUSCULTATION: Yes normoactive bowel sounds PALPATION: Yes Soft to palpation and Yes No hepatosplenomegaly present RECTAL EXAM: deferred Extremity: COMMON NORMALS: no clubbing, cyanosis or edema and no pedal edema Neuro: COMMON NORMALS: patient oriented x3 Data : 09/14/20 05:50 09/14/20 05:50 Micro: Microbiology 09/13/20 11:55 Urine Culture - Preliminary Urine,Voided 09/13/20 14:45 Blood Culture - Preliminary Blood SPECIMEN COLLECTED 09/13/20 14:40 Blood Culture - Preliminary Blood SPECIMEN COLLECTED A&P Assessment and plan (1) Nephrolithiasis: Status: Acute (2) Pyelonephritis: Status: Acute (3) SHERICE (acute kidney injury): Status: Acute (4) Hydronephrosis: Status: Acute Qualifiers: Hydronephrosis type: with renal calculous obstruction Qualified Code(s): N13.2 - Hydronephrosis with renal and ureteral calculous obstruction Additional A&P Information Sepsis secondary to pyelonephritis: Nephrolithiasis/hydronephrosis: Post right ureteral stent stenting: urine culture:NTD blood culture:NTD During the hospital stay she has been on ceftriaxone.She has been discharged on Cefuoxime 500 mg po BID for 20 days as well as ciprofloxacin 500 mg po BID fo 10 days. Rice 5 every 6 hour, tramadol 50 every 6 hours for pain management. Normal saline at 75 cc/h. #chronic cystitis cystica: Plan as 1 #Acute kidney injury: Most likely secondary to sepsis. Continue with IV fluids as above. #Hypertension: Goal blood pressure less than 140/90 mmHg. Continue with amlodipine. For now hold off on lisinopril. Cardiac diet DVT prophylaxis SCDs Full code Attestations Medical Necessity Statement*: Patient needs to be in hospital for the management of sepsis. 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
--- NOTE | 2020-09-17 07:18 | PC.RESP ---
SMOKING CESSATION INFORMATION SENT TO PATIENT.
== END 2020-09-14 11:39 | disposition home or self-care (01) | DRG 854 ==
LOC: ER 02:00 → MEDSURG 02:29
PROVIDERS: Student in an Organized Health Care Education/Training Program; Urology; Admitting Provider Internal Medicine; Emergency Provider Emergency Medicine; Visit Provider Internal Medicine
PROC: 0TJB8ZZ Inspection of Bladder, Via Natural or Artificial Opening Endoscopic (ICD-10-PCS; CPT 52000; principal; 2020-09-13 08:50)
PROC: 0T768DZ Dilation of Right Ureter with Intraluminal Device, Via Natural or Artificial Opening Endoscopic (ICD-10-PCS; 2020-09-13 08:50)
DX: A41.9 Sepsis, unspecified organism (principal); N17.9 Acute kidney failure, unspecified; N10 Acute pyelonephritis; N11.1 Chronic obstructive pyelonephritis; I10 Essential (primary) hypertension; J45.909 Unspecified asthma, uncomplicated; M19.90 Unspecified osteoarthritis, unspecified site; G89.29 Other chronic pain; M54.9 Dorsalgia, unspecified; F17.210 Nicotine dependence, cigarettes, uncomplicated; N20.0 Calculus of kidney; N30.20 Other chronic cystitis without hematuria
CPT/HCPCS: 36415; 74018; 76000; 80048; 80053; 80061; 81001; 83036; 83540; 83550; 84145; 84443; 85025; 87040; 87086; 87641; 99285; C2625; J0330; J0696; J1100; J1170; J2250; J2405; J2704; J3010; J7799

== ENCOUNTER 2020-09-18 09:58 | Outpatient (CLI) | payer SELFPAY ==
--- NOTE | 2020-09-18 10:00 | XR_ITS ---
WS: [id number] KUB, AP view, 09/18/2020 Clinical Data: STONES Comparison: KUB, 09/13/2020. Findings: The right ureteral stent is in good position. There is a dextroscoliosis of the lumbar spine. There i s a posterior lumbar fusion on the right at L5-S1 with artificial disc spacers at L5-S1. There are cl ips in the right upper quadrant from a cholecystectomy. No definite renal or ureteral calculi are seen. XR/XR KUB [id number] Impression: Right ureteral stent.
== END 2020-09-18 09:59 | disposition home or self-care (01) ==
PROVIDERS: PCP Urology; Visit Provider Urology
DX: N20.1 Calculus of ureter (principal); Z20.822 Contact with and (suspected) exposure to COVID-19; Z96.0 Presence of urogenital implants
CPT/HCPCS: 74018; 81003; 87635

== ENCOUNTER 2020-09-22 10:23 | Day surgery (SDC) | payer SELFPAY ==
[2020-09-21 16:24] VITALS: BMI 26.2
[2020-09-22] VITALS (14 sets, daily range): BP systolic 140–177; BP diastolic 86–119; PULSE 60–86; RESP 10–18; TEMP 36.2–36.8; O2SAT 92–100
--- NOTE | 2020-09-22 | SCC_ITS ---
Procedure Done: 1. Cystoscopy removal of right ureteral stent 2. Right retrograde ureteropyelogram 3. Right flexible ureterorenoscopy with laser lithotripsy of right renal calculus, no stent 42.4 seconds of fluoroscopic guidance, for a cumulative dose of 8.76 mGy, was provided to Dr. Linda by the radiology department. C-arm images of the abdomen were saved for the patient's permanent record. DIANND
--- NOTE | 2020-09-22 10:30 | XRR_ITS ---
PROCEDURE INFORMATION: Exam: XR Abdomen Exam date and time: 09/22/2020 10:30 AM Age: 49 years old Clinical indication: Screening exam; Other: Preop; Prior surgery; Surgery type: Stent, gb, back; Additional info: Preop right ureteroscopy TECHNIQUE: Imaging protocol: XR of the abdomen. Views: Frontal supine view of the abdomen. 1 View. COMPARISON: CR XR KUB [id number] 09/18/2020 10:35 AM FINDINGS: Tubes, catheters and devices: A right ureteral stent projects in satisfactory position. Gastrointestinal tract: Normal. No bowel dilation. Organs: Clips are present in the right upper quadrant from cholecystectomy. 4 mm calcification projects on left kidney. No definite ureteral calculi are seen. Bones/joints: The patient has undergone L5-S1 lumbar fusion. Chronic degenerative changes are present in the spine with dextroscoliosis. XR/XR KUB [id number] IMPRESSION: 1. A 4 mm calcification projects on the left kidney. 2. Satisfactory ureteral stent position. 3. No ureteral calculi are seen.
--- NOTE | 2020-09-22 11:38 | P.ANESASSM_ITS ---
Pre-Anesthetic Assessment Pre-Anesthetic Assessment: Height/Weight: Height 1.6 m Weight 67.132 kg Temp Pulse Resp BP Pulse Ox 98.2 F 84 18 163/109 98 09/22/20 10:48 09/22/20 10:48 09/22/20 10:48 09/22/20 10:48 09/22/20 10:48 Preop Diagnosis: Right renal calculus status post emergency stenting for obstructive pyelo Proposed Procedure: Operation Date: 09/22/20 12:00 Proposed Procedures p Laser Lithotripsy 78388 [id number] n20.1(Not Applicable) - Yasmany kruger MD s Cystoscopy(Not Applicable) - Yasmany Linda MD s Retrograde Pyelogram(Right) - Yasmany Linda MD s Ureteroscopy(Not Applicable) - Yasmany Linda MD s Ureteral Stent Placement(Not Applicable) - Yasmany Linda MD Was Beta Jagdeep taken within 24 hours: N/A Was Clonidine taken within 24 hours: N/A Last intake: Intake Last Liquid Date 09/21/20 Last Liquid Time 19:00 Last Solid Date 09/21/20 Last Solid Time 19:00 Social: Social History: Tobacco and No alcohol Exam: Pre-Anes Outpt Exam: alert, oriented x 3 and regular rate & rhythm Airway: Submandibular: WNL Cervical ROM: WNL MP: 2 Dentition: False Pulmonary: Pulmonary: COPD CV/HEM: CV/HEM: HTN Anesthetic Plan: ASA status: 2 Anesthesia: General Risk of > 500 ml blood loss (7ml/kg in children): No PFSH Anesthesia PFSH: Medical History Arthritis Asthma Bronchitis HTN (hypertension) Nicotine dependence Obstructive pyelonephritis Surgical History H/O hemorrhoidectomy History of cholecystectomy History of tonsillectomy Previous back surgery S/P skin biopsy Family History Other No pertinent family history Social History Smoking and tobacco status: current every day smoker cigarettes [ Other cigarette details: 1.5pack ] Alcohol intake: never Household members: none Housing: House Marital status: Legally Current occupational status: unemployed Data Anesthesia Cardiac Studies: No Data to Display
[2020-09-22] MEDS: sodium chloride 0.9% 1,000 ML 30 ML IV (11:40)
[2020-09-22] MEDS: midazolam 1 mg/mL INJ 2 mL 2 MG IVP (11:43)
--- NOTE | 2020-09-22 11:48 | SC_ITS ---
WS: [id number] INTRAOPERATIVE TECHNIQUE: 2 Spot fluoroscopic images for intraoperative purposes. FLUOROSCOPY TIME: 42.4 seconds CLINICAL INFORMATION: intra-op COMPARISON: None. FINDINGS: Right ureteroscopy for right ureteral stent deployment. Contrast within the right renal calyces. Part ially visualized pedicle screw fixation L5-S1 with interbody fusion SC/C-arm FL for Urology IMPRESSION: Images obtained for intraoperative purposes.
--- NOTE | 2020-09-22 11:53 | P.HPUD_ITS ---
Surgery/Procedure H&P Update DATE OF PROCEDURE: September 22, 2020 DATE H&P PERFORMED: 09/18/20 H&P UPDATE INFORMATION: I have reviewed H&P completed within last 30 days, I have examined patient prior to procedure, No changes to prior documentation and H&P is in [facility] EMR on date indicated PREOP DIAGNOSIS: Right renal calculus status post emergency stenting for obstructive pyelo PLANNED PROCEDURE: Operation Date: 09/22/20 12:00 Proposed Procedures p Laser Lithotripsy [id number] n20.1(Not Applicable) - Yasmany Linda MD s Cystoscopy(Not Applicable) - MD silvina Delaney Retrograde Pyelogram(Right) - MD silvina Delaney Ureteroscopy(Not Applicable) - MD silvina Delaney Ureteral Stent Placement(Not Applicable) - Yasmany Linda MD
--- NOTE | 2020-09-22 11:56 | P.OP_ITS ---
Operative Report Date of procedure: September 22, 2020 Pre-op Diagnosis: Right renal calculus status post emergency stenting for obstructive pyelo Post-op Diagnosis: Right renal calculus status post emergency stenting for obstructive pyelo Procedure Done: 1. Cystoscopy removal of right ureteral stent 2. Right retrograde ureteropyelogram 3. Right flexible ureterorenoscopy with laser lithotripsy of right renal calculus, no stent Pathology: none sent Surgeon: Maddi Anesthesia: General Estimated blood loss: None Urine output: Not measured Complications: None Condition: stable Disposition: PACU Brief History: Alejandra is a very pleasant 49-year-old white female recently admitted for obstructive pyelonephritis undergoing emergent right ureteral stent placement for an obstructing right proximal/UPJ stone. Was also found to have CHRONIC CYSTITIS CYSTICA. She is being brought back in for outpatient surgery for stent removal ureteroscopy laser lithotripsy of the stone now that she has recovered well with antibiotic therapy. Procedure: After routine preoperative evaluation examination and obtaining of informed consent she was taken to the operating suite on 09/22/2020 where general anesthe troy was administered without difficulty after appropriate timeout was performed, SCDs confirmed to be functioning, preoperative antibiotics administered, beta- ruth ann protocol confirmed. Prepped and draped in usual sterile fashion in dorsolithotomy position. Careful attention was paid to avoiding pressure points. 21 Syriac cystoscope with 30 degree lens was introduced into urethra meatus and advanced into the bladder to videoscopy. The bladder was systematically examined confirming previously identified cystitis cystica. Stent was grasped and removed with grasping forceps. An 8 Syriac cone-tip catheter was intubated into the right ureteral orifice for right retrograde ureteropyelogram which showed a normal course of the right ureter with nice dilation from the stent. The stone could not be clearly identified as a filling defect in the ureter. A flexible tip guidewire was then advanced up the stent without difficulty curling in the area of the renal pelvis. Second guidewire was then passed. The first was a secured to the drapes as a safety wire the second was used as a working wire. A 24 cm ureteral access sheath was then advanced over the working wire up the right ureter under fluoroscopic monitoring with good position. It was advanced all the way to the hub. The wire was removed and a flexible ureterorenoscope was advanced through the sheath up into the right kidney. The kidney and ureter were carefully inspected. The stone was identified in one of the Was then fragmented with a 200 ?m thulium superpulse laser fiber into a few smaller pieces and sand. The scope was then withdrawn slowly and the ureter was inspected with the access sheath back to the hub of the scope. The ureter was healthy and nicely dilated and no stent was left. The safety wire was removed and the procedure was completed. Bladder was drained. She tolerated the procedure well without complications and was awakened in the operating room and returned to the cart room in stable condition. PLANS: 1. Anticipate discharge from outpatient surgery today 2. Continue CIPROFLOXACIN 500 mg twice a day for chronic cystitis cystica 3. Follow-up 2 weeks with KUB
[2020-09-22] MEDS: levofloxacin-dextrose 5 % 500 MG/100 ML PREMIX 100 MG IV (12:00)
[2020-09-22] MEDS: iohexol 300 mg/mL 50 mL Btl (OR ONLY) XX (12:26)
--- NOTE | 2020-09-22 13:14 | PM.PACU ---
Documented by User: Jair Dunham CRNA 09/22/20 13:14 PACU note PACU note: VSS, Good respiratory effort, report to DIRECTOR FRAUD Post-Anesthesia Exam: awake
[2020-09-22] MEDS: HYDROmorphone 1 mg/mL INJ 1 mL 0.5 MG IVP ×3 (13:15→13:41)
--- NOTE | 2020-09-22 13:33 | SUR.PHASEI ---
per anesthesia may give dilaudid as first pacu pain medication.
--- NOTE | 2020-09-22 13:53 | SUR.PHASEI ---
[id number] PATIENT TO OPS. TEARFUL. PAIN IMPROVED. RR EVEN AND UNLABORED. ANESTHESIA AWARE OF LAST DOSE OF PAIN MEDICATION.
[2020-09-22] MEDS: HYDROcodone-acetaminophen 5-325 mg Tablet 1 TAB PO (14:09)
--- NOTE | 2020-09-22 15:02 | ANE.PACU2 ---
Inpatient post-anesthesia follow up: Airway intact: Yes Vital signs: Temperature 97.1 F Pulse Rate 60 Respiratory Rate 18 Blood Pressure 173/119 Pulse Oximetry 98 Oxygen Delivery Me thod Room Air Oxygen Flow Rate 2 Fraction of Inspir ed Oxygen Hydration adequate: Yes Nausea and vomiting: No Pain level: 2 Mental status: Baseline
== END 2020-09-22 14:25 | disposition home or self-care (01) ==
PROVIDERS: PCP Urology; Visit Provider Urology
PROC: (CPT 52353; principal; 2020-09-22 12:00)
PROC: 0TJB8ZZ Inspection of Bladder, Via Natural or Artificial Opening Endoscopic (ICD-10-PCS; CPT 52000; 2020-09-22 12:00)
PROC: (CPT 74420; 2020-09-22 12:00)
PROC: 0TJ98ZZ Inspection of Ureter, Via Natural or Artificial Opening Endoscopic (ICD-10-PCS; CPT 52351; 2020-09-22 12:00)
PROC: (CPT 52310; 2020-09-22 12:00)
DX: N20.0 Calculus of kidney (principal); N11.1 Chronic obstructive pyelonephritis; J44.9 Chronic obstructive pulmonary disease, unspecified; I10 Essential (primary) hypertension; M19.90 Unspecified osteoarthritis, unspecified site; F17.210 Nicotine dependence, cigarettes, uncomplicated
CPT/HCPCS: 52353; 74018; 76000; J1100; J1170; J1956; J2250; J2405; J2704; J2710; J3010; J3490; J7030

== ENCOUNTER 2020-10-09 08:57 | Outpatient (CLI) | payer SELFPAY ==
--- NOTE | 2020-10-09 08:45 | XR_ITS ---
WS: [id number] XR KUB [id number] REASON FOR EXAM: nephrolithiasis FINDINGS: Compared to previous examination of 09/22/2020, the right ureteral stent is been removed. No calculus can be identified within the right kidney or along the right ureter or overlying the urinary bladder. Small 3 mm calculus remains over the lower pole of the left kidney. No other significant abdominal or pelvic findings. XR/XR KUB [id number] IMPRESSION: Removal of right ureteral catheter with no calculi in the right kidney or right ureter.
== END 2020-10-09 08:58 | disposition home or self-care (01) ==
PROVIDERS: PCP Urology; Visit Provider Urology
DX: Z46.6 Encounter for fitting and adjustment of urinary device (principal); N20.0 Calculus of kidney
CPT/HCPCS: 74018; 81003

== ENCOUNTER 2020-12-28 07:59 | Day surgery (SDC) | payer SELFPAY ==
[2020-12-28] VITALS (7 sets, daily range): BP systolic 128–156; BP diastolic 87–103; PULSE 70–105; RESP 12–18; TEMP 36.6–37.4; O2SAT 93–99; BMI 25.3
--- NOTE | 2020-12-28 08:30 | XR_ITS ---
WS: [id number] KUB, AP view, 12/28/2020 Clinical Data: nephrolithiasis Comparison: KUB, 10/09/2018. Findings: No abnormal intraabdominal masses or calcifications are seen. There is no dilatated small bowel or ev idence of obstruction. There is fecal material obscuring detail of the right kidney and partly over the superior aspect of t he left kidney. There are clips in the right upper quadrant from a cholecystectomy. There is a dextro scoliosis. There is a posterior lumbar fusion of the L5 and S1 vertebral bodies on the right with uni lateral pedicle screws and a connecting nasra. Artificial cages are present at L5-S1. A bilateral bony fusion at L5-S1 is seen. XR/XR KUB [id number] Impression: 1. Fecal material obscures detail over both kidneys. 2. No change from prior KUB.
--- NOTE | 2020-12-28 15:34 | ANES.PREANE2 ---
Pre-Anesthetic Assessment Pre-Anesthetic Assessment: Height/Weight: Height 1.6 m Weight 64.864 kg Temp Pulse Resp BP Pulse Ox 97.9 F 105 H 16 156/103 94 12/28/20 15:21 12/28/20 15:21 12/28/20 15:21 12/28/20 15:21 12/28/20 15:21 Preop Diagnosis: Left proximal ureteral stone obstructing Proposed Procedure: Operation Date: 12/28/20 17:45 Proposed Procedures p Cystoscopy(Not Applicable) - Yasmany Linda MD s Ureteral Stent Placement(Left) - Yasmany Linda MD s ESWL(Left) - Yasmany Linda MD Was Beta Jagdeep taken within 24 hours: N/A Was Clonidine taken within 24 hours: N/A Last intake: Intake Last Liquid Date 12/28/20 Last Liquid Time 08:00 Last Solid Date 12/27/20 Last Solid Time 19:00 Social: Social History: Tobacco and No alcohol Exam: Pre-Anes Outpt Exam: alert, oriented x 3 and regular rate & rhythm Airway: Submandibular: WNL Cervical ROM: WNL MP: 2 Dentition: False Pulmonary: Pulmonary: COPD CV/HEM: CV/HEM: HTN : Comments: Kidney stones Anesthetic Plan: ASA status: 3 Anesthesia: General Risk of > 500 ml blood loss (7ml/kg in children): No PFSH Anesthesia PFSH: Medical History Arthritis Asthma Bronchitis HTN (hypertension) Hydronephrosis, left Nicotine dependence Obstructive pyelonephritis Surgical History H/O hemorrhoidectomy History of cholecystectomy History of tonsillectomy Previous back surgery S/P skin biopsy Family History Other No pertinent family history Social History Alcohol intake: never Household members: none Housing: House Marital status: Legally Current occupational status: unemployed Data Anesthesia Cardiac Studies: No Data to Display
[2020-12-28] MEDS: sodium chloride 0.9% 1,000 ML 30 ML IV (15:42)
--- NOTE | 2020-12-28 17:03 | P.HPUD_ITS ---
Surgery/Procedure H&P Update DATE OF PROCEDURE: December 28, 2020 DATE H&P PERFORMED: 12/28/20 H&P UPDATE INFORMATION: I have reviewed H&P completed within last 30 days, I have examined patient prior to procedure, No changes to prior documentation and H&P is in [facility] EMR on date indicated PREOP DIAGNOSIS: Left proximal/mid obstructing ureteral stone PLANNED PROCEDURE: Operation Date: 12/28/20 17:45 Proposed Procedures p Cystoscopy(Not Applicable) - Yasmany Linda MD s Ureteral Stent Placement(Left) - Yasmany Linda MD s ESWL(Left) - Yasmany Linda MD
[2020-12-28] MEDS: levofloxacin-dextrose 5 % 500 MG/100 ML PREMIX 100 MG IV (17:10)
[2020-12-28] MEDS: iohexol 300 mg/mL 50 mL Btl (OR ONLY) XX (17:33)
--- NOTE | 2020-12-28 18:07 | PM.OP ---
Operative Report Date of procedure: December 28, 2020 Pre-op Diagnosis: Left proximal/mid obstructing ureteral stone Post-op Diagnosis: Left mid to distal ureteral stone Procedure Done: 1. Cystoscopy, left retrograde ureteropyelogram 2. Left ureteral stent placement (6 [place] by 24 cm double-pigtail without string 3. Extracorporeal shockwave lithotripsy to left ureteral calculus Implants: Left ureteral stent Pathology: none sent Surgeon: Maddi Piece Goods Clerk: [place] Anesthesia: General Urine output: Not measured Complications: None Findings: Stent placed without difficulty. Stone was easily focused upon after the stent was placed and he responded well to treatment. 2500 shocks administered and at the completion of procedure the stone could not be readily identified. Condition: stable Disposition: PACU Brief History: Alejandra is a very pleasant 50-year-old white female with a history of recurrent urolithiasis. She had a known history of a left lower pole stone that recently dropped into the left ureter as confirmed via CT scan done recently at [facility]. She was having tremendous amount of pain associated with the stone and was having difficulty getting it controlled with appropriate doses of oral narcotics. Ultimately because of the severity of the pain and because she has had a history in the past of obstructive Pyelo episode and recurrent UTIs it was decided to proceed on urgent basis for cystoscopy extracorporeal shockwave lithotripsy possible stent. Procedure: After urgent evaluation examination and obtaining of informed consent she was taken to the operating suite on 12/28/2020 where general anesthesia was administered without difficulty after appropriate timeout was performed, SCDs confirmed to be functioning, preoperative antibiotics administered, beta-ruth ann protocol confirmed. Prepped and draped in the usual sterile fashion in dorsolithotomy position paying careful attention to avoiding pressure points. 21 [place] cystoscope with 30 degree lens was introduced into the urethra meatus and advanced into the bladder under videoscopy. Fluoroscopy showed what appeared to be 2 calcifications one of them more likely to be the stone and because of the question a retrograde ureteropyelogram was performed. 8 [place] cone-tip catheter was intubated the left ureteral orifice and contrast was injected up the left ureter outlining the stone which was the larger of the 2 calcifications. The remainder of the ureter looked normal except for mildly dilated proximal to the stone. A flexible tip guidewire was then passed up the left ureter bypassing the stone without difficulty curling in the upper pole calyx and a 6 [place] by 24 cm double-pigtail stent was advanced over the guidewire through the cystoscope into appropriate position as confirmed via fluoroscopy and cystoscopy. The stone was still readily visible next to the stent in the expected position. Shockwave therapy was initiated with the shock head anteriorly in the focal position after she was placed back in supine position. A total of 2500 shocks were administered beginning at an intensity of 1 advancing to intensity of 4 and initial event rate of 70 with advancement to a rate of 90 after significant change had occurred. At the completion of the procedure the stone could no longer be seen. The procedure was completed. She tolerated it well without complications and was awakened in the operating room and returned to the recovery room in stable condition. PLANS: 1. Anticipate discharge from outpatient surgery 2. Follow-up in about a week with a plain x-ray first and likely cystoscopy stent removal.
[2020-12-28] MEDS: ondansetron 2 mg/ML SDV 2 mL 4 MG IVP (18:48)
[2020-12-28] MEDS: oxyCODONE-APAP 10-325 mg Tablet 1 TAB PO (18:56)
--- NOTE | 2020-12-29 06:49 | ANE.PACU2 ---
Inpatient post-anesthesia follow up: Airway intact: Yes Vital signs: Temperature 99.1 F Pulse Rate 70 Respiratory Rate 17 Blood Pressure 144/87 Pulse Oximetry 98 Oxygen Delivery Me thod Room Air Oxygen Flow Rate Fraction of Inspir ed Oxygen Hydration adequate: Yes Nausea and vomiting: No Pain level: 2 Mental status: Baseline
== END 2020-12-28 19:03 | disposition home or self-care (01) ==
LOC: RAD 11:25 → OR 15:03
PROVIDERS: PCP Family Medicine; Visit Provider Urology
PROC: 0TJB8ZZ Inspection of Bladder, Via Natural or Artificial Opening Endoscopic (ICD-10-PCS; CPT 52000; principal; 2020-12-28 17:25)
PROC: (CPT 50605; 2020-12-28 17:25)
PROC: (CPT 50590; 2020-12-28 17:25)
DX: N20.1 Calculus of ureter (principal); J44.9 Chronic obstructive pulmonary disease, unspecified; I10 Essential (primary) hypertension; M19.90 Unspecified osteoarthritis, unspecified site; F17.210 Nicotine dependence, cigarettes, uncomplicated
CPT/HCPCS: 50590; 52332; 74018; C2625; J1100; J1956; J2405; J2704; J2710; J3010; J3490; J7030

== ENCOUNTER 2021-01-04 08:41 | Outpatient (CLI) | payer SELFPAY ==
--- NOTE | 2021-01-04 08:46 | XR_ITS ---
WS: [id number] Exam: XR KUB [id number] Date/Time of Exam: 01/04/2021 8:59 AM Reason For Exam: stones Comparison 12/28/2020. No bowel obstruction or free air. No calcifications seen in the region of the kidneys. A left-sided u reteral stent is in place appearing to be in satisfactory location. Postoperative changes of the lumb osacral spine with hardware. Signs of prior cholecystectomy. Moderate DJD of the lumbar spine and dex troscoliosis. XR/XR KUB [id number] IMPRESSION: 1. Left ureteral stent in place in satisfactory position. 2. No acute finding. Postoperative changes as noted above.
== END 2021-01-04 08:42 | disposition home or self-care (01) ==
LOC: RAD 08:43
PROVIDERS: PCP Family Medicine; Visit Provider Urology
DX: N20.1 Calculus of ureter (principal); Z96.0 Presence of urogenital implants
CPT/HCPCS: 74018